=== PATIENT | female | born 1935 | race Caucasian/White ===

== ENCOUNTER → 2017-12-17 | Outpatient (CLI) | payer OTHER ==
[~2017-12-17] MED LIST: ASPIR 8181 M1 PO; ATIVAN1 MG PO; BENADRYL25 MG PO; CARISOPRODOL 3350 MG PO; FAMOTIDINE 20 M20 MG PO; FLEXERIL PO; GLUCOPHAGE500 MG PO; HYDROCODON-ACE1 EAC5 PO; IRON325 PO; LEXAPRO 10 MG T10 M2 PO; NORVASC5 MG PO; PROTONIX40 M1 PO; REQUIP0.5 MG PO; RESTORIL15 MG PO; SENOKOT-S1 TA2 PO; Synthroid PO; XANAX 0.5 MG0.5 MG PO
[2017-12-17 12:47] LABS: ABSOLUTE BASOPHILS 0.1 thou/uL (0.0-0.2); ABSOLUTE EOSINOPHILS 0.3 thou/uL (0.0-0.7); ABSOLUTE LYMPHOCYTES 2.7 thou/uL (0.8-5.3); ABSOLUTE MONOCYTES 0.8 thou/uL (0.0-1.2); BASOPHILS 1.3 %; EOSINOPHILS 3.6 %; HEMATOCRIT 28.4 % (37.0-47.0); HEMOGLOBIN 8.5 gm/dL (12.0-15.0); LYMPHOCYTES 29.2 %; MCH 22.3 pg (26.0-34.0); MCHC 29.8 g/dL (28.0-37.0); MCV 74.9 fL (80.0-100.0); MONOCYTES 8.3 %; MPV 7.6 fl. (7.2-11.1); NUCLEATED RBCS 0 /100WBC; PLATELET COUNT* 314 thou/uL (150-400); POLYS 57.6 %; RDW-CV 19.7 % (10.5-14.5); WBC 9.1 thou/uL (4.0-11.0)
[2017-12-17 12:55] LABS: CALCIUM 9.1 mg/dL (8.5-10.1); CREATININE 0.9 mg/dL (0.6-1.3); POTASSIUM 4.4 mmol/L (3.5-5.1)
[2017-12-17 13:00] LABS: ALBUMIN 3.9 g/dL (3.4-5.0); TOTAL BILIRUBIN 0.3 mg/dL (<0.1-1.0); TOTAL PROTEIN 7.7 g/dL (6.4-8.2)
[2017-12-17 13:37] LABS: ABSOLUTE NEUTROPHILS 5.2 thou/uL (1.6-8.1); ANISOCYTOSIS 2+; HYPOCHROMASIA 2+; MICROCYTES 2+; OVALOCYTES 1+; PLATELET ESTIMATE ADEQUATE
[2017-12-17 13:38] LABS: POLYCHROMASIA 1+
== END ==
LOC: M.LAB 12:32
PROVIDERS: Nurse Practitioner Family
DX: M47.896 Other spondylosis, lumbar region (principal); M16.11 Unilateral primary osteoarthritis, right hip; I10 Essential (primary) hypertension; R74.8 Abnormal levels of other serum enzymes; D50.8 Other iron deficiency anemias

== ENCOUNTER 2018-02-19 15:04 | Inpatient (IN) | payer OTHER ==
[~2018-02-19] VITALS: Ht 149.9 cm; Wt 63.0 kg
[~2018-02-19 15:04] MED LIST changes: -FAMOTIDINE 20 M20 MG PO; -IRON325 PO; -REQUIP0.5 MG PO; -SENOKOT-S1 TA2 PO
[2018-02-19 15:05] VITALS: BP 120/50
[2018-02-19 15:30] LABS: ABSOLUTE BASOPHILS 0.1 thou/uL (0.0-0.2); ABSOLUTE EOSINOPHILS 0.4 thou/uL (0.0-0.7); ABSOLUTE LYMPHOCYTES 2.6 thou/uL (0.8-5.3); ABSOLUTE MONOCYTES 0.8 thou/uL (0.0-1.2); ABSOLUTE NEUTROPHILS 3.9 thou/uL (1.6-8.1); BASOPHILS 1.2 %; EOSINOPHILS 4.8 %; HEMATOCRIT 34.9 % (37.0-47.0); HEMOGLOBIN 11.2 gm/dL (12.0-15.0); LYMPHOCYTES 33.5 %; MCH 26.6 pg (26.0-34.0); MCV 83.3 fL (80.0-100.0); MONOCYTES 9.8 %; MPV 8.3 fl. (7.2-11.1); NUCLEATED RBCS 0 /100WBC; PLATELET COUNT* 204 thou/uL (150-400); POLYS 50.7 %; RBC 4.19 mil/uL (4.20-5.00); WBC 7.7 thou/uL (4.0-11.0)
[2018-02-19 15:40] LABS: ANION GAP 8 mmol/L (7-16); BUN 21 mg/dL (7-18); CALCIUM 8.6 mg/dL (8.5-10.1); CHLORIDE 106 mmol/L (98-107); CO2 26 mmol/L (21-32); CREATININE 0.8 mg/dL (0.6-1.3); GLUCOSE 95 mg/dL (70-99); SODIUM 140 mmol/L (136-145)
[2018-02-19 15:45] LABS: PLATELET ESTIMATE ADEQUATE
[2018-02-19 15:46] LABS: ALBUMIN 3.6 g/dL (3.4-5.0); ALKALINE PHOSPHATASE 174 U/L (46-116); ANISOCYTOSIS 1+; LIPASE 139 U/L (73-393); MICROCYTES 1+; POIKILOCYTOSIS 1+; SGOT 52 U/L (15-37); SGPT 45 U/L (30-65); TOTAL BILIRUBIN 0.2 mg/dL (<0.1-1.0); TOTAL PROTEIN 7.3 g/dL (6.4-8.2); TROPONIN-I LEVEL <0.06 ng/mL (<0.06)
[2018-02-19 16:28] LABS: URINE BILIRUBIN NEGATIVE (Negative); URINE BLOOD NEGATIVE (Negative); URINE CLARITY CLEAR; URINE COLOR YELLOW; URINE GLUCOSE-RANDOM NEGATIVE (Negative); URINE KETONES NEGATIVE (Negative); URINE LEUKOCYTES-REFLEX NEGATIVE (Negative); URINE NITRITE-REFLEX NEGATIVE (Negative); URINE PROTEIN TRACE (Negative); URINE SPECIFIC GRAVITY >= 1.030 (1.005-1.030); URINE UROBILINOGEN 0.2 E.U./dl (0.2-1.0)
[2018-02-19 17:50] VITALS: BP 127/55
[2018-02-19 18:10] VITALS: BP 138/70
[2018-02-19] MEDS ORDERED: REQUIP0.5 MG PO (18:14)
--- NOTE | 2018-02-19 19:00 | NUR ---
RECEIVED PT FROM ER 1800. PATIENT ALERT AND ORIENTED X4. VSS. AMBULATORY FROM CART TO BED. GAIT IS STEADY. PATIENT DENIES ANY SOA. O2 SAT 99% ON 2L NC. TITRATED TO ROOM AIR. SHE DENIES ANY PAIN. IVF INFUSING. NEW CARDIOLOGY CONSULT CALLED, DISCUSSED PATIENT WITH DR SÁNCHEZ. PATIENT STABLE. NO NEW ORDERS AT THIS TIME. ADMISSION ASSESSMENT AND HISTORY COMPLETE. BED ALARM ON. CALL LIGHT WITHN REACH. WILL CONTIUE PLAN OF CARE.
[2018-02-19 20:00] VITALS: BP 142/73
--- NOTE | 2018-02-19 22:00 | NUR ---
RECEIVED REPORT AND ASSUMED CARE OF PT, ASSESSMENT COMPLETED. DENIES DIZZINESS OR LIGHTHEADNESS. ASSISTED TO BR WITH STEADY GAIT. TELEMETRY ON SHOWING SR WITH 1ST AVB WITH INTERMITTENT AV PACED RYTHYM. WILL CONT TO MONITOR AND ASSIST NEEDED.
[2018-02-19 23:48] VITALS: BP 115/66
[2018-02-20 04:32] VITALS: BP 115/44
[2018-02-20 04:54] LABS: HEMOGLOBIN 10.2 gm/dL (12.0-15.0); MCH 26.8 pg (26.0-34.0); MCHC 31.9 g/dL (28.0-37.0); MPV 8.5 fl. (7.2-11.1); RBC 3.81 mil/uL (4.20-5.00); WBC 8.1 thou/uL (4.0-11.0)
[2018-02-20 05:31] LABS: CALCIUM 8.2 mg/dL (8.5-10.1); CREATININE 0.7 mg/dL (0.6-1.3); MAGNESIUM 1.9 mg/dL (1.8-2.4); POTASSIUM 4.2 mmol/L (3.5-5.1); TOTAL BILIRUBIN 0.2 mg/dL (<0.1-1.0); TOTAL PROTEIN 5.9 g/dL (6.4-8.2)
--- NOTE | 2018-02-20 05:45 | NUR ---
SLEPT WELL TONIGHT. GAIT STEADY WITH SBA TO AND FROM BR. NO CHANGE IN ASSESSMENT. TELEMETRY SHOWING SR WITH 1ST AVB BUT HAVING INTERMITTENT AV PACED BEATS WHILE SLEEPING. HS GOALS OF REST AND SAFETY OBTAINED. HOURLY ROUNDING OBSERVED.
--- NOTE | 2018-02-20 07:25 | NUR ---
change of shift, bedside report given assumed patient care patient seen at bedside, asleep
[2018-02-20 08:00] VITALS: BP 137/66
--- NOTE | 2018-02-20 11:01 | EKG ---
[place] [address] ELECTROCARDIOGRAM REPORT Name: CANDICE TRUJILLO Room: [address] ADM IN M.R.#: [id number] Admission: 02/19/18 Attend Phys: Meagan Sood MD Discharge: Date of : 35 Report #: [id number] THIS REPORT FOR: //name// [facility] ED Test Date: 2018-02-19 Test Time: 15:37:00 Pat Name: CANDICEROMÁN TRUJILLO Department: Room: [facility] Gender: F Recreational Aide: Duane HERNADEZ : 1935 Requested By: Maral Camacho Order Number: [id number] MD: Vj Alcantar Measurements Intervals [place] Rate: 60 P: 0 [place]: 178 QRS: 9 QRSD: 102 T: -5 QT: 431 QTc: 431 Interpretive Statements Sinus rhythm Borderline T abnormalities, inferior leads Compared to ECG 06/29/2017 09:55:13 T-wave abnormality now present ST (T wave) deviation no longer present Electronically Signed On 02-20-2018 11:01:40 CDT by Vj Alcantar [email or web address] <ELECTRONICALLY SIGNED> By: Vj Alcantar MD, FACC 02/20/18 1101 1537 1537 Vj Alcantar MD, FAC /EPI
[2018-02-20 12:09] VITALS: BP 143/59
--- NOTE | 2018-02-20 13:37 | NUR ---
CM ASSESSMENT: Pt is A&O. Resides at home with her dtr. Independent with ADLs, continues to cook and clean. Pt's granddtr provides transportation, Pt states that her car is currently broken down. No DME. No hx of HH or SNF. Goal is to return home once medically stable. Pt NPO for cardiology consult. Following.
--- NOTE | 2018-02-20 13:59 | 2DMMODE ---
[place] [address] 2 D/M-MODE ECHOCARDIOGRAM Name: CANDICE TRUJILLO Room: [address] IN [facility]#: [id number] Admission: 02/19/18 Attend Phys: Meagan Sood, Discharge: Date of : 35 Date of Service: 02/20/18 1358 Report #: [id number] THIS REPORT FOR: //name// APPROVED REPORT Study performed: 02/20/2018 10:14:32 EXAM: Comprehensive 2D, Doppler, and color-flow Echocardiogram Patient Location: In-Patient Room #: [facility] Status: routine BSA: 1.65 HR: 67 bpm BP: 115/44 mmHg Rhythm: NSR Other Information Study Quality: Good Indications Palpitations Near syncope 2D Dimensions LVEF(%): 62.77 (>50%) IVSd: 10.14 (7-11mm) LVOT Diam: 18.63 (18-24mm) LVDd: 43.73 mm PWd: 9.28 (7-11mm) Ascending Ao: 32.29 (22-36mm) LVDs: 28.99 (25-40mm) Aortic Root: 30.13 mm Leonardo's LVEF: 62.77 % Volumes Left Atrial Volume (Systole) LA ESV Index: 35.20 mL/m2 Aortic Valve AoV Peak Varghese.: 1.87 m/s AO Peak Gr.: 14.05 mmHg LVOT Max P.91 mmHg AO Mean Gr.: 7.57 mmHg LVOT Mean P.40 mmHg LVOT Max V: 1.31 m/s AO V2 VTI: 39.74 cm LVOT Mean V: 0.84 m/s GLADIS (VTI): 2.14 cm2 LVOT V1 VTI: 31.22 cm AI [place]: 2.52 m/s2 AI PHT: 444.84 [place] [address] 2 D/M-MODE ECHOCARDIOGRAM Name: CANDICE TRUJILLO Room: [address] IN .R.#: [id number] Admission: 02/19/18 Attend Phys: Meagan Sood, Discharge: Date of : 35 Date of Service: 02/20/18 1358 Report #: [id number] Mitral Valve E/A Ratio: 0.57 MV Decel. Time: 243.59 ms MV E Max Varghese.: 0.72 m/s MV PHT: 70.64 ms MVA (PHT): 3.11 cm2 TDI E/Lateral E': 9.00 E/Medial E': 10.29 Medial E' Varghese.: 0.07 m/s Lateral E' Varghese.: 0.08 m/s Pulmonary Valve PV Peak Varghese.: 1.20 m/s PV Peak Gr.: 5.80 mmHg Tricuspid Valve TR Peak Gr.: 27.28 mmHg RVSP: 32.00 mmHg Left Ventricle The left ventricle is normal size. There is normal LV segmental wall motion. There is normal left ventricular wall thickness. Left ventricular systolic function is normal. The left ventricular ejection fraction is within the normal range. LVEF is 55-60%. Grade I - abnormal relaxation pattern. Right Ventricle The right ventricle is normal size. The right ventricular systolic function is normal. Pacemaker lead is present in the right ventricle. Atria Left atrium is at the upper limits of normal. The right atrium size is normal. Aortic Valve Mild aortic valve sclerosis. Mild aortic regurgitation. There is no aortic valvular stenosis. Mitral Valve The mitral valve is normal in structure. Trace mitral regurgitation. No evidence of mitral valve stenosis. Tricuspid Valve The tricuspid valve is normal in structure. Moderate tricuspid regurgitation.. The RVSP is 30-[place] [address] 2 D/M-MODE ECHOCARDIOGRAM Name: SERGIO TRUJILLOJENNIFER Rich Room: [address] M.R.#: [id number] Admission: 02/19/18 Attend Phys: Meagan Sood, Discharge: Date of : 35 Date of Service: 02/20/18 1358 Report #: [id number] Pulmonic Valve The pulmonary valve is normal in structure. There is no pulmonic valvular regurgitation. Great Vessels The aortic root is normal in size. IVC is normal in size and collapses with >50% inspiration Pericardium There is no pericardial effusion. <Conclusion> LVEF is 55-60%. There is normal LV segmental wall motion. There is no aortic valvular stenosis. Mild aortic regurgitation. Moderate tricuspid regurgitation.. The RVSP is 30-35 mmHg. Pacemaker lead is present in the right ventricle. <ELECTRONICALLY SIGNED> By: Vj Alcantar MD, FACC 02/20/18 1358 1358 1358 Vj Alcantar MD, FACC /INF
[2018-02-20 15:57] VITALS: BP 134/59
--- NOTE | 2018-02-20 19:39 | NUR ---
PATIENT LAYING IN BED AND WATCHINH TV NO C/O PAIN AT THIS TIME CALL LIGHT IN REACH AND INSTRUCTION GIVEN AND FOLLOWED
[2018-02-20 20:00] VITALS: BP 129/64
--- NOTE | 2018-02-20 20:00 | NUR ---
RECEIVED REPORT AND ASSUMED CARE OF PT, ASSESSMENT COMPLETED. PT [place] BUT NO DIFFICULTY WITH COMMUNICATION. TELEMETRY ON SHOWING SR WITH 1ST AVB, ALSO SHOWING DEMAND A-V PACED RHYTHM. PT ANXIOUS TO GO HOME SO SHE CAN COOK EASTER DINNER. WILL CONT TO MONITOR AND ASSIST NEEDED.
[2018-02-21 00:11] VITALS: BP 135/55
[2018-02-21 04:49] VITALS: BP 143/51
--- NOTE | 2018-02-21 06:55 | NUR ---
PT SLEPT WELL. PT IS FALL RISK, DOES NOT USE CALL LIGHT WHEN NEEDING TO GO TO BR. PT HAS BECOME INCREASINGLY WEAKER DURING NIGHT WITH UNSTEADY BALANCE. REMAINS ORIENTED BUT FORGETFUL. NO DIFFICULTY WITH TAKING PO MEDS. TELEMETRY CONT TO SHOW DEMAND PACED RYTHYM. HS GOALS OF REST AND SAFETY OBTAINED. HOURLY ROUNDING OBSERVED.
[2018-02-21 08:00] VITALS: BP 139/68
--- NOTE | 2018-02-21 08:00 | NUR ---
ASSUMED CARE OF PT ASSESSED AND DOCUMENTED. PT IS ON CARDIAC MONITER TRACING SR IST DEGREE/PACED HR 82. PT IS A&O WITH NO C/O PAIN. PT IS ON ROOM AIR. PT IS ON FALL PRECAUTIONS PER FACILITY PROTOCOL. BED IS IN LOW POSITION CALL LIGHT IS IN REACH. WM.
[2018-02-21 12:28] VITALS: BP 134/65
[2018-02-21 16:25] VITALS: BP 135/55
--- NOTE | 2018-02-21 17:53 | NUR ---
PT HAS RESTED IN HER ROOM THIS SHIFT. SHE IS ON CARDIAC MONITER TRACING A-FIB PACED. PT IS UP WITH 1 AND CAN BE UNSTEADY. PTS DAUGHTER CALLED TO ADD IRON TO PTS MED LIST. NOTIFIED DR LOZANO AND ORDER WAS GIVEN. EDUCATION GIVEN ON DEMAND. HOURLY ROUNDING COMPLETED.
[2018-02-21 20:00] VITALS: BP 144/65
[2018-02-22] VITALS: BP 137/70
[2018-02-22 04:00] VITALS: BP 131/71
--- NOTE | 2018-02-22 06:21 | NUR ---
ASSUMED PT CARE AT 1930, PT IS A&OX4, SHE CAN BE FORGETFUL AT TIMES. PT DENIES ANY PAIN OR NEEDS, PT IS TRACING NSR ON THE MONITOR, WITH A 1DAVB. PT IS ON RA SATTING MID TO HIGH 90'S. PT SLEPT ON AND OFF THROUGHOUT THE NIGHT. PT WAS INCONTINENT OF URINE MULTIPLE TIMES THIS SHIFT, IVF INFUSINGPAR MAR. BED IN LOW POSITION, CALL LIGHT IN REACH, BED ALARM ON, YELLOW ARM BAND AND SOCKS IN PLACE, HOURLY ROUNDING COMPLETED FOR PT SAFETY.
[2018-02-22 08:00] VITALS: BP 133/73
[2018-02-22 12:00] VITALS: BP 115/76
[2018-02-22 16:00] VITALS: BP 146/66
--- NOTE | 2018-02-22 18:12 | NUR ---
PATENT RESTING IN BED. UP WITH ASSIST X1. PATIENT HAS BOUGHTS OF FORGETTFULNESS. Q4H NEURO CHECKS. HOURLY ROUNDING COMPLETED FOR PATIENT SAFETY.
[2018-02-22 20:00] VITALS: BP 132/72; BP 132/76
[2018-02-23] VITALS: BP 156/65
--- NOTE | 2018-02-23 03:01 | NUR ---
Doctor notified at 210902/22/2018 of patient's last bowel movement. Called recieved see orders.
[2018-02-23 04:00] VITALS: BP 137/66
--- NOTE | 2018-02-23 04:45 | NUR ---
Patient rested in bed. No acute changes, patient did not show sings of distress. Patient echo later today. Fall precautions in place, bed alarm on, call light within reach, hourly rounding observe.
[2018-02-23 07:45] VITALS: BP 143/67
[2018-02-23 08:00] VITALS: BP 143/67
[2018-02-23 11:30] VITALS: BP 129/64
[2018-02-23] MEDS ORDERED: FAMOTIDINE 20 M20 MG PO (14:14)
[2018-02-23] MEDS ORDERED: CARISOPRODOL 3350 MG PO (14:14)
[2018-02-23] MEDS ORDERED: IRON325 PO (14:15)
[2018-02-23] MEDS ORDERED: SENOKOT-S1 TA2 PO (14:16)
[2018-02-23 14:25] VITALS: BP 129/64
--- NOTE | 2018-02-23 14:38 | NUR ---
Pt discharging to home today. CM faxed order for a walker to Evy at [facility], they are to deliver walker to Pt's room. Family to provide dc transportation.
--- NOTE | 2018-02-23 16:22 | NUR ---
PT D/C'D TO HOME. ALL CONSULTS OK WITH D/C. IV AND CARDIAC MONITER D/C'D. EDUCATION GIVEN RE FOLLOW-UPS, MEDICATIONS, AND DRS ORDERS. ALL BELONGINGS PACKED UP AND LEFT WITH PT ACCOMPANIED BY FAMILY AND STAFF. NEW WALKER ARRIVED FOR PT. PT HAD A PAIR OF SHOES AND WAS UNABLE TO FIND. WILL NOTIFY RISK MANAGEMENT.
--- NOTE | 2018-03-06 15:41 | CON ---
[address] [address] CONSULTATION Name: CANDICE TRUJILLO Room: [address] IN M.R.#: [id number] Admission: 02/19/18 Attend Phys: Meagan Sood MD Discharge: 02/23/18 Date of : 35 Report #: [id number] THIS REPORT FOR: //name// CC: Meagan Blancas DATE OF SERVICE: 02/20/2018 REASON FOR CONSULTATION: Weakness, fatigue, pacemaker history. HISTORY OF PRESENT ILLNESS: The patient is an 82-year-old female with a history of permanent pacemaker implanted at [facility], presents in our hospital with symptoms of weakness, fatigue and nausea for about a week to 10 days. She denies overt syncope. There is no record of seizures. Her underlying rhythm was atrial paced on presentation and overnight her telemetry has been unremarkable. Historically, she is without complaints of chest pain or pressure. She has not really been short of breath. She reports no edema. She is on numerous pain medications and muscle relaxants apparently as she has severe osteoarthritis and chronic back pain. She denies neurologic symptoms of slurred speech, numbness or weakness or visual changes. She is without fevers or chills. UA was unremarkable for infection. PAST MEDICAL HISTORY: She has a permanent pacemaker implanted by Dr. Mahoney about 5 years ago at [facility]. She is seen by him every 6 months for pacemaker check. She cannot recall device brand. She has a history of normal stress test at this hospital about a year ago. She had normal LV function. She has a history of hypertension, hypothyroidism, hypercholesterolemia. SOCIAL HISTORY: She is a nonsmoker. Her daughter lives with her. HOME MEDICATIONS: Include Norvasc 5 mg daily, Lexapro 10 mg daily, Xanax 0.5 mg p.o. b.i.d. scheduled, hydrocodone, acetaminophen 1 tablet p.o. q.6 hours p.r.n., Benadryl p.r.n., Synthroid 0.125 mg daily, aspirin 81 mg daily, temazepam 15 mg at bedtime, Glucophage 500 mg daily, Soma 350 mg p.o. b.i.d., Protonix 40 mg daily and Robinul. REVIEW OF SYSTEMS: CARDIOVASCULAR RISK FACTOR: She is a remote smoker and she has hyperlipidemia. PVD: Denies history of carotid vascular disease or claudication. CENTRAL NERVOUS SYSTEM: [place] [address] CONSULTATION Name: CANDICE TRUJILLO Room: [address]#: [id number] Admission: 02/19/18 Attend Phys: Meagan Sood MD Discharge: 02/23/18 Date of : 35 Report #: [id number] GENERAL: No weight loss or fevers. GENITOURINARY: No dysuria or hematuria. CARDIOVASCULAR: No chest pain. Positive shortness of breath. No orthopnea, no PND, no edema. ENDOCRINE: Positive hypothyroidism. GASTROINTESTINAL: Positive nausea, no vomiting. No melena or hematemesis. HEMATOLOGIC: No history anemia. RENAL: No history of kidney failure. ALLERGIES: MORPHINE. PSYCHIATRIC: Positive anxiety. MUSCULOSKELETAL: Positive arthritis. SKIN: No rashes. EYES: Denies any blurred vision or loss of vision. EARS, NOSE, THROAT AND MOUTH: Positive decreased hearing. PHYSICAL EXAMINATION: VITAL SIGNS: Blood pressure is 137/66, pulse is 60, respiratory rate is 20 and temperature is 36.9. GENERAL: This is a pleasant elderly female. She is a poor historian, but she is resting comfortably, alert and oriented. HEENT: EOMs intact. No facial asymmetry. There is no facial droop, no evidence of trauma. Mouth: Oral mucosa is moist. NECK: Supple. No jugular venous distention. Carotid upstrokes are normal. CARDIOVASCULAR: Regular. I can hear faint systolic murmur. I could not hear a rub or gallop. ABDOMEN: Soft, nontender. EXTREMITIES: There is no peripheral edema. SKIN: Warm and dry. PSYCHIATRIC: The patient has appropriate mood and affect. LABORATORY DATA: Electrocardiogram demonstrates atrial paced rhythm with a ventricular conduction and a mild IVCD and normal ST segments. Cardiac troponin level was normal, 0.06. Alkaline phosphatase 148. Sodium is 141, potassium is 4.2, chloride is 108, CO2 is 27, BUN is 13, creatinine is 0.7. Chest x-ray was unremarkable. IMPRESSION: 1. Weakness, fatigue. This is somewhat nonspecific and it appears the patient is on significant amount of medications, which may have some sedative type effects. From a cardiovascular standpoint, she has had a testing recently which was unremarkable for the presence of ischemia and reports no angina. She does not seem to have congestive heart failure type symptoms. 2. Permanent pacemaker. We are obtaining records from Dr. aMhoney's office, but she gets it checked regularly and on telemetry, there does not appear to be any evidence of pacemaker malfunction. 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 [address] [address] CONSULTATION Name: CANDICE TRUJILLO Room: [address] IN .R.#: [id number] Admission: 02/19/18 Attend Phys: Meagan Sood MD Discharge: 02/23/18 Date of : 35 Report #: [id number] 3. Hypertension. This is stable. I do not think she is overmedicated in this regard. We will be available as needed, but I do not see the need for any further cardiovascular testing. <ELECTRONICALLY SIGNED> By: Vj Alcantar MD, FACC 03/06/18 1541 1025 1857Vj Alcantar MD, FACC /nt
== END 2018-02-23 16:35 | disposition home or self-care (01) | DRG 74 ==
LOC: M.ERS 15:04 → M.2W 16:06 → M.TBA-ER 16:06 → M.2W 18:01
PROVIDERS: Physician Assistant; ADMIT Internal Medicine
DX: G90.8 Other disorders of autonomic nervous system (principal); E44.1 Mild protein-calorie malnutrition; G89.29 Other chronic pain; M54.9 Dorsalgia, unspecified; I10 Essential (primary) hypertension; E03.9 Hypothyroidism, unspecified; E78.00 Pure hypercholesterolemia, unspecified; F41.9 Anxiety disorder, unspecified; I49.3 Ventricular premature depolarization; E11.9 Type 2 diabetes mellitus without complications; K21.9 Gastro-esophageal reflux disease without esophagitis; D64.9 Anemia, unspecified; E86.0 Dehydration; I70.0 Atherosclerosis of aorta; I35.1 Nonrheumatic aortic (valve) insufficiency; Z68.28 Body mass index [BMI] 28.0-28.9, adult; Z95.0 Presence of cardiac pacemaker; Z88.6 Allergy status to analgesic agent; Z79.82 Long term (current) use of aspirin; Z79.899 Other long term (current) drug therapy

== ENCOUNTER → 2018-06-16 | Outpatient (CLI) | payer OTHER ==
[~2018-06-16] MED LIST changes: +FAMOTIDINE 20 M20 MG PO; +IRON325 PO; +REQUIP0.5 MG PO; +SENOKOT-S1 TA2 PO
[2018-06-16 14:11] LABS: HEMATOCRIT 39.1 % (37.0-47.0); HEMOGLOBIN 12.7 gm/dL (12.0-15.0); MCH 29.3 pg (26.0-34.0); MCHC 32.4 g/dL (28.0-37.0); MCV 90.2 fL (80.0-100.0); MPV 7.9 fl. (7.2-11.1); RBC 4.33 mil/uL (4.20-5.00)
[2018-06-16 14:22] LABS: ALBUMIN 3.7 g/dL (3.4-5.0); CALCIUM 9.3 mg/dL (8.5-10.1); CREATININE 0.9 mg/dL (0.6-1.3); POTASSIUM 4.3 mmol/L (3.5-5.1); TOTAL BILIRUBIN 0.4 mg/dL (<0.1-1.0); TOTAL PROTEIN 7.8 g/dL (6.4-8.2)
== END ==
LOC: M.LAB 13:55
PROVIDERS: Nurse Practitioner Family
DX: I10 Essential (primary) hypertension (principal); E03.9 Hypothyroidism, unspecified; E78.00 Pure hypercholesterolemia, unspecified; F41.9 Anxiety disorder, unspecified; Z95.0 Presence of cardiac pacemaker; Z88.6 Allergy status to analgesic agent

== ENCOUNTER 2019-01-12 12:24 | Emergency (ER) | payer OTHER ==
[~2019-01-12] VITALS: Ht 152.4 cm; Wt 73.5 kg
[2019-01-12 12:50] LABS: ABSOLUTE BASOPHILS 0.1 thou/uL (0.0-0.2); ABSOLUTE EOSINOPHILS 0.2 thou/uL (0.0-0.7); ABSOLUTE LYMPHOCYTES 1.9 thou/uL (0.8-5.3); ABSOLUTE MONOCYTES 0.7 thou/uL (0.0-1.2); ABSOLUTE NEUTROPHILS 5.8 thou/uL (1.6-8.1); BASOPHILS 0.9 %; EOSINOPHILS 2.5 %; HEMATOCRIT 41.2 % (37.0-47.0); HEMOGLOBIN 13.7 gm/dL (12.0-15.0); LYMPHOCYTES 22.1 %; MCH 30.2 pg (26.0-34.0); MCHC 33.3 g/dL (28.0-37.0); MONOCYTES 8.1 %; MPV 8.8 fl. (7.2-11.1); NUCLEATED RBCS 0 /100WBC; PLATELET COUNT* 216 thou/uL (150-400); POLYS 66.4 %; RBC 4.53 mil/uL (4.20-5.00); RDW-CV 14.1 % (10.5-14.5); WBC 8.8 thou/uL (4.0-11.0)
[2019-01-12 12:59] LABS: URINE BILIRUBIN NEGATIVE (Negative); URINE BLOOD NEGATIVE (Negative); URINE CLARITY CLEAR; URINE COLOR YELLOW; URINE GLUCOSE-RANDOM NEGATIVE (Negative); URINE KETONES NEGATIVE (Negative); URINE LEUKOCYTES-REFLEX TRACE (Negative); URINE NITRITE-REFLEX NEGATIVE (Negative); URINE PROTEIN NEGATIVE (Negative); URINE UROBILINOGEN 0.2 E.U./dl (0.2-1.0)
[2019-01-12 13:11] LABS: APTT 26.5 Seconds (25.0-31.3); PROTIME 10.7 Seconds (9.20-11.50)
[2019-01-12 13:14] LABS: SQUAMOUS 0-3 Few /LPF (0-3)
[2019-01-12 13:14] LABS: CALCIUM 9.7 mg/dL (8.5-10.1); CREATININE 1.1 mg/dL (0.6-1.3); POTASSIUM 4.2 mmol/L (3.5-5.1)
[2019-01-12 13:15] LABS: BACTERIA-REFLEX 1-9 Few /HPF (None Seen); CASTS None Seen /LPF (None Seen); CRYSTALS None Seen /LPF (None Seen); MUCUS 0-3 Light strn/LPF (None Seen); URINE RBC 0-2 Rare /HPF (0-2); URINE WBC-REFLEX 0-5 Rare /HPF (0-5)
[2019-01-12 13:17] LABS: BE -5.4 mmol/L (-2 to +3); PCO2 29.7 mmHg (35.0-45.0); pH 7.402 (7.340-7.450)
[2019-01-12 13:18] LABS: INFLUENZA A ANTIGEN None Detected (None Detect); INFLUENZA B ANTIGEN None Detected (None Detect)
[2019-01-12 13:18] LABS: ALBUMIN 4.1 g/dL (3.4-5.0); MAGNESIUM 1.9 mg/dL (1.8-2.4); TOTAL BILIRUBIN 0.4 mg/dL (<0.1-1.0); TOTAL PROTEIN 8.2 g/dL (6.4-8.2)
[2019-01-12 13:58] LABS: NT-PRO BRAIN NAT PEPTIDE 279 pg/mL (<300); TROPONIN-I LEVEL <0.06 ng/mL (<0.06)
[2019-01-12 17:22] VITALS: BP 158/88
--- NOTE | 2019-01-13 16:00 | EKG ---
[place] [address] ELECTROCARDIOGRAM REPORT Name: CANDICE TRUJILLO Room: [facility] [place]#: [id number] Admission: 01/12/19 Attend Phys: Discharge: 01/12/19 Date of : 35 Report #: [id number] THIS REPORT FOR: //name// [facility] ED Test Date: 2019-01-12 Test Time: 12:30:34 Pat Name: CANDICE TRUJILLO Department: Room: Gender: F Basket Assembler: AMEE : 1935 Requested By: Maral Reynoso Order Number: [id number] MD: Ranjan Gutierrez Measurements Intervals [place] Rate: 84 P: 3 [place]: 217 QRS: 3 QRSD: 98 T: -6 QT: 367 QTc: 434 Interpretive Statements Sinus rhythm Ventricular ectopy Borderline prolonged [place] interval Borderline T abnormalities, inferior leads Compared to ECG 02/19/2018 15:37:00 Ventricular premature complex(es) now present T-wave abnormality still present Electronically Signed On 01-13-2019 16:00:31 FIELD ADMINISTRATOR by Ranjan Gutierrez [email or web address] <ELECTRONICALLY SIGNED> By: Ranjan Gutierrez MD, FACC 01/13/19 1600 1230 1230 Ranjan Gutierrez MD, [facility] /EPI
== END 2019-01-12 17:22 | disposition home or self-care (01) ==
LOC: M.ERS 12:24
PROVIDERS: Personal Emergency Response Attendant
DX: F41.9 Anxiety disorder, unspecified (principal); R07.89 Other chest pain; I10 Essential (primary) hypertension; E78.00 Pure hypercholesterolemia, unspecified; E05.90 Thyrotoxicosis, unspecified without thyrotoxic crisis or storm; Z95.0 Presence of cardiac pacemaker; Z88.5 Allergy status to narcotic agent

== ENCOUNTER 2019-04-09 08:36 | Emergency (ER) | payer OTHER ==
[~2019-04-09] VITALS: Ht 149.9 cm; Wt 66.2 kg
[2019-04-09 09:20] LABS: ABSOLUTE EOSINOPHILS 0.3 thou/uL (0.0-0.7); ABSOLUTE LYMPHOCYTES 0.5 thou/uL (0.8-5.3); ABSOLUTE MONOCYTES 0.5 thou/uL (0.0-1.2); ABSOLUTE NEUTROPHILS 7.4 thou/uL (1.6-8.1); BASOPHILS 0.2 %; EOSINOPHILS 3.1 %; HEMATOCRIT 32.7 % (37.0-47.0); HEMOGLOBIN 10.9 gm/dL (12.0-15.0); LYMPHOCYTES 5.9 %; MCHC 33.2 g/dL (28.0-37.0); MCV 87.5 fL (80.0-100.0); MONOCYTES 5.8 %; MPV 8.8 fl. (7.2-11.1); NUCLEATED RBCS 0 /100WBC; PLATELET COUNT* 181 thou/uL (150-400); RBC 3.74 mil/uL (4.20-5.00); RDW-CV 13.2 % (10.5-14.5); WBC 8.8 thou/uL (4.0-11.0)
[2019-04-09 09:30] LABS: CALCIUM 8.1 mg/dL (8.5-10.1); CREATININE 0.8 mg/dL (0.6-1.3); POTASSIUM 3.7 mmol/L (3.5-5.1)
[2019-04-09 09:35] LABS: TOTAL BILIRUBIN 0.7 mg/dL (<0.1-1.0); TOTAL PROTEIN 6.2 g/dL (6.4-8.2)
[2019-04-09 11:13] LABS: URINE BLOOD NEGATIVE (Negative); URINE CLARITY CLEAR; URINE COLOR YELLOW; URINE GLUCOSE-RANDOM NEGATIVE (Negative); URINE LEUKOCYTES-REFLEX TRACE (Negative); URINE NITRITE-REFLEX NEGATIVE (Negative); URINE PROTEIN NEGATIVE (Negative); URINE UROBILINOGEN 0.2 E.U./dl (0.2-1.0)
[2019-04-09 11:18] LABS: ICTOTEST (BILI CONFIRMATORY) Negative (Negative); URINE BILIRUBIN 1+ (Negative); URINE KETONES 3+ (Negative)
[2019-04-09 11:26] LABS: SQUAMOUS 0-3 Few /LPF (0-3)
[2019-04-09 11:27] LABS: BACTERIA-REFLEX 1-9 Few /HPF (None Seen); CASTS None Seen /LPF (None Seen); CRYSTALS None Seen /LPF (None Seen); MUCUS None Seen strn/LPF (None Seen); URINE RBC 3-10 Few /HPF (0-2); URINE WBC-REFLEX 0-5 Rare /HPF (0-5)
[2019-04-09] MEDS ORDERED: KEFLEX500 M1 PO (12:02)
[2019-04-09] MEDS ORDERED: ZOFRAN ODT4 MG DISSOLVE (12:02)
[2019-04-09] MEDS ORDERED: HYDROCODONE-AP1 EAC6 PO (12:02)
[2019-04-09 12:15] VITALS: BP 120/78
--- NOTE | 2019-04-10 10:28 | EKG ---
[place] [address] ELECTROCARDIOGRAM REPORT Name: CANDICE TRUJILLO Room: [facility]#: [id number] Admission: 04/09/19 Attend Phys: Discharge: 04/09/19 Date of : 35 Report #: [id number] THIS REPORT FOR: //name// [facility] ED Test Date: 2019-04-09 Test Time: 08:46:28 Pat Name: CANDICE TRUJILLO Department: Room: Gender: F Vice President Pharmacy: Duane MCKEON : 1935 Requested By: Jose Martinez Order Number: [id number] Aj MD: Ranjan Gutierrez Measurements Intervals [place] Rate: 73 P: 43 MD: 207 QRS: 19 QRSD: 102 T: -3 QT: 414 QTc: 457 Interpretive Statements Sinus rhythm Borderline T abnormalities, inferior leads Compared to ECG 01/12/2019 12:30:34 No significant changes Electronically Signed On 04-10-2019 10:28:39 CDT by Ranjan Gutierrez [email or web address] <ELECTRONICALLY SIGNED> By: Ranjan Gutierrez MD, [facility] 04/10/19 1028 5 Ranjan Gutierrez MD, FACC /EPI
== END 2019-04-09 12:16 | disposition home or self-care (01) ==
LOC: M.ERS 08:36
PROVIDERS: Emergency Medicine Emergency Medical Services
DX: N39.0 Urinary tract infection, site not specified (principal); I10 Essential (primary) hypertension; E03.9 Hypothyroidism, unspecified; E78.00 Pure hypercholesterolemia, unspecified; F41.9 Anxiety disorder, unspecified; Z88.5 Allergy status to narcotic agent

== ENCOUNTER → 2019-05-14 | Outpatient (CLI) | payer OTHER | LOC: M.RAD 14:47 | DX: M48.02 Spinal stenosis, cervical region (principal); M25.78 Osteophyte, vertebrae; M25.511 Pain in right shoulder; Z88.6 Allergy status to analgesic agent ==

== ENCOUNTER 2019-08-05 14:38 | Emergency (ER) | payer OTHER ==
[~2019-08-05] VITALS: Ht 149.9 cm; Wt 64.4 kg
[~2019-08-05 14:38] MED LIST changes: +HYDROCODONE-AP1 EAC6 PO; +KEFLEX500 M1 PO; +ZOFRAN ODT4 MG DISSOLVE
[2019-08-05 15:38] LABS: ABSOLUTE BASOPHILS 0.1 thou/uL (0.0-0.2); ABSOLUTE EOSINOPHILS 0.4 thou/uL (0.0-0.7); ABSOLUTE LYMPHOCYTES 2.9 thou/uL (0.8-5.3); ABSOLUTE MONOCYTES 0.6 thou/uL (0.0-1.2); ABSOLUTE NEUTROPHILS 4.4 thou/uL (1.6-8.1); EOSINOPHILS 4.5 %; HEMATOCRIT 36.1 % (37.0-47.0); HEMOGLOBIN 12.1 gm/dL (12.0-15.0); LYMPHOCYTES 34.8 %; MCH 29.1 pg (26.0-34.0); MCHC 33.4 g/dL (28.0-37.0); MCV 87.1 fL (80.0-100.0); MONOCYTES 7.1 %; MPV 8.9 fl. (7.2-11.1); NUCLEATED RBCS 0 /100WBC; PLATELET COUNT* 227 thou/uL (150-400); POLYS 52.6 %; RBC 4.15 mil/uL (4.20-5.00); RDW-CV 15.1 % (10.5-14.5); WBC 8.3 thou/uL (4.0-11.0)
[2019-08-05 15:41] LABS: CALCIUM 8.8 mg/dL (8.5-10.1); POTASSIUM 4.3 mmol/L (3.5-5.1)
[2019-08-05 15:46] LABS: ALBUMIN 3.7 g/dL (3.4-5.0); TOTAL BILIRUBIN 0.4 mg/dL (<0.1-1.0); TOTAL PROTEIN 7.3 g/dL (6.4-8.2)
[2019-08-05] MEDS ORDERED: SKELAXIN 800 M800 M1 PO (15:53)
[2019-08-05] MEDS ORDERED: VITAMIN B-1100 M1 PO (15:53)
[2019-08-05 16:09] LABS: URINE BILIRUBIN NEGATIVE (Negative); URINE BLOOD NEGATIVE (Negative); URINE CLARITY CLEAR; URINE COLOR YELLOW; URINE GLUCOSE-RANDOM NEGATIVE (Negative); URINE KETONES TRACE (Negative); URINE LEUKOCYTES-REFLEX NEGATIVE (Negative); URINE NITRITE-REFLEX NEGATIVE (Negative); URINE PROTEIN NEGATIVE (Negative); URINE SPECIFIC GRAVITY 1.015 (1.005-1.030); URINE UROBILINOGEN 0.2 E.U./dl (0.2-1.0)
[2019-08-05] MEDS ORDERED: GABAPENTIN 100100 MG PO (18:15)
[2019-08-05] MEDS ORDERED: PHENERGAN 25 MG25 M1 PO (18:15)
[2019-08-05 18:53] VITALS: BP 147/68
--- NOTE | 2019-08-06 12:27 | EKG ---
[place] [address] ELECTROCARDIOGRAM REPORT Name: CANDICE TRUJILLO Room: [facility]#: [id number] Admission: 08/05/19 Attend Phys: Discharge: 08/05/19 Date of : 35 Report #: [id number] THIS REPORT FOR: //name// [facility] ED Test Date: 2019-08-05 Test Time: 14:48:28 Pat Name: CANDICE TRUJILLO Department: Room: Gender: F Crnp: STEFANIE : 1935 Requested By: Maral Reynoso Order Number: [id number] Aj MD: Ranjan Gutierrez Measurements Intervals [place] Rate: 61 P: -16 [place]: 261 QRS: 7 QRSD: 98 T: -11 QT: 395 QTc: 398 Interpretive Statements Sinus rhythm Prolonged [place] interval Borderline T abnormalities, inferior leads, possible ischemia Baseline wander in lead(s) V2 Compared to ECG 04/09/2019 08:46:28 First degree AV block now present T-wave abnormality still present Electronically Signed On 08-06-2019 12:26:52 CDT by Ranjan Gutierrez [email or web address] <ELECTRONICALLY SIGNED> By: Ranjan Gutierrez MD, [facility] 08/06/19 1226 1448 1448 Ranjan Gutierrez MD, [facility] /EPI
== END 2019-08-05 18:54 | disposition home or self-care (01) ==
LOC: M.ERS 14:38
PROVIDERS: Personal Emergency Response Attendant
DX: M54.12 Radiculopathy, cervical region (principal); I10 Essential (primary) hypertension; E05.90 Thyrotoxicosis, unspecified without thyrotoxic crisis or storm; E78.00 Pure hypercholesterolemia, unspecified; F41.9 Anxiety disorder, unspecified; Z95.0 Presence of cardiac pacemaker; Z88.5 Allergy status to narcotic agent